=== PATIENT | male | born 1960 | race Two or more races ===

== ENCOUNTER 2025-03-19 16:21 | Emergency (ER) | payer SELFPAY ==
[2025-03-19 16:42] VITALS: BP 138/80; PULSE 104; RESP 18; TEMP 37.5; O2SAT 96
--- NOTE | 2025-03-19 16:55 | XR_ITS ---
Examination: Venous duplex lower extremity sonogram, bilateral. Date and time of exam: March 19, 2025, 1721 hours INDICATIONS: Bilateral leg swelling 4 days, recent diagnosis DVT, patient started on anticoagulation therapy Technique: Multiple sonographic images of the deep venous system have been obtained. B-mode/2-D grayscale imaging of vascular structures and Doppler spectral analysis (waveforms) and color performed Both legs are examined. Findings: Deep venous systems do not demonstrate abnormal echogenicity. All visualized deep veins exhibit compressibility. All visualized deep veins exhibit augmentation. Impression: Negative for deep vein thrombosis
--- NOTE | 2025-03-19 16:55 | XR_ITS ---
Examination: AP lateral chest 2 views TECHNIQUE: Upright AP lateral chest 2 views Date and time: March 19, 2025 1710 hours INDICATIONS: Chest pain beginning today with swollen hands and feet 4 days. FINDINGS: Mild prominence left ventricle Ectatic thoracic aorta. Moderate vascular congestion. No or vashti pulmonary edema Impression: No pneumonia or vashti pulmonary edema
--- NOTE | 2025-03-19 16:55 | XR_ITS ---
Examination: Duplex scan of the upper extremity, unilateral right Date and time of exam: March 19, 2025, 1742 hours INDICATIONS: Right arm swelling beginning 4 days ago, history diagnosis leg DVT, patient currently is anticoagulated Technique: Duplex scan of the extremity veins using B-mode/grayscale imaging and Doppler spectral analysis and color flow Attention is directed to internal echogenicity, compression and augmentation involving these veins, color flow assessment, spectral analysis Findings: Major deep venous structures in the extremity demonstrate normal course and caliber. There is no evidence of deep vein thrombosis. Normal color flow and spectral analysis Impression: Negative for DVT..
--- NOTE | 2025-03-19 16:55 | EKG_ITS ---
[facility] Test Date: 2025-03-19 Pat Name: JEROME PERDOMO Department: Room: - Gender: Male Document Advisor: : [id number] Requested By: Tj Fuller (TRUDY) Order Number: [id number] Reading MD: Tj Fuller (COPY LATHE OPERATOR) Measurements Intervals [place] Rate: 104 P: 15 TN: 159 QRS: 11 QRSD: 101 T: -5 QT: 358 QTc: 472 Interpretive Statements SINUS TACHYCARDIA MINIMAL ST DEPRESSION [0.025+ mV ST DEPRESSION] ABNORMAL RHYTHM ECG No previous ECG available for comparison /store/S0/[id number]/ecg/[id number].pdf
--- NOTE | 2025-03-19 16:56 | EDRME_ITS ---
Rapid Medical Screening Exam RME Arrival date/time: 03/19/25 16:21 64-year-old male presents to the Emergency Department today from plaint of bilateral pressure and swelling and lower extremity swelling patient reports he was recently diagnosed with blood clot while in the hospital and [place] patient was started on Eliquis Chief Complaint: Extremity Problem,Nontraumatic Vital signs: Vital Signs Temperature 99.5 F 03/19/25 16:42 Pulse Rate 104 H 03/19/25 16:42 Respiratory Rate 18 03/19/25 16:42 Blood Pressure 138/80 H 03/19/25 16:42 Pulse Oximetry (%) 96 03/19/25 16:42 Oxygen Delivery Method Room Air 03/19/25 16:42
[2025-03-19 17:19] LABS: Basophils # (Auto) 0.0 Thou/mm3 (0.0-0.2); Basophils % (Auto) 1 % (0-2.5); Eosinophils # (Auto) 0.3 Thou/mm3 (0.0-0.5); Eosinophils % (Auto) 5 % (0-10); Hematocrit 33.2 % (41.0-53.0); Hemoglobin 10.9 g/dL (13.5-16.0); Immature Granulocytes Auto 0.06 Thou/mm3 (0.00-0.00); Lymphocytes # (Auto) 1.1 Thou/mm3 (1.0-4.8); Lymphocytes % (Auto) 17 % (10-50); Mean Corpuscular HGB Conc 32.8 g/dl (31.0-37.0); Mean Corpuscular Hemoglobin 28.5 pg (25.0-35.0); Mean Corpuscular Volume 87 fL (80-100); Monocytes # (Auto) 1.0 Thou/mm3 (0.0-0.8); Monocytes % (Auto) 15 % (0-12); Neutrophils # (Auto) 4.0 Thou/mm3 (1.8-7.7); Neutrophils % (Auto) 61 % (37-80); Nucleated Red Blood Cell # 0.00 Thou/mm3 (0.00-0.00); Nucleated Red Blood Cell % 0 /100 WBC (0); Platelet Count 421 Thou/mm3 (140-440); RDW Standard Deviation 47.3 fL (35.1-43.9); Red Blood Count 3.82 Miln/mm3 (4.50-5.90); White Blood Count 6.5 Thou/mm3 (3.8-10.6)
[2025-03-19 17:40] LABS: B-Type Natriuretic Peptide 96 pg/mL (0-100)
[2025-03-19 17:41] LABS: Alanine Aminotransferase 9 U/L (10-49); Albumin, Serum 3.8 gm/dL (3.4-4.8); Albumin/Globulin Ratio 1.1 (1.2-2.2); Alkaline Phosphatase 56 U/L (46-116); Anion Gap 14 (7-16); Aspartate Amino Transferase 22 U/L (0-34); BUN/Creatinine Ratio 6 Ratio (12-20); Bilirubin,Total 0.5 mg/dL (0.3-1.2); Blood Urea Nitrogen 7 mg/dL (9-23); Calcium 9.8 mg/dL (8.3-10.6); Calcium (Corrected) 10.0 mg/dL (8.5-10.1); Carbon Dioxide 21.3 mMol/L (20.0-31.0); Chloride 99 mMol/L (98-107); Creatinine (Component) 1.1 mg/dL (0.6-1.3); Globulin 3.6 gm/dL (2.3-3.5); Glucose 114 mg/dL (74-106); Magnesium 1.7 mg/dL (1.6-2.6); Osmolality,Calculated 267 (275-295); Potassium 3.3 mMol/L (3.4-5.1); Sodium 134 mMol/L (136-145); Total Protein 7.4 gm/dL (5.7-8.2); Troponin I < 0.020 ng/mL (0.0-0.045); eGFR > 60 See Note
[2025-03-19 19:04] LABS: INR 1.3 (0.9-1.3); Partial Thromboplastin Time 48.4 Seconds (22.0-36.0); Prothrombin Time 14.4 Seconds (9.0-12.2)
[2025-03-19 19:56] VITALS: BP 151/83; PULSE 87; RESP 22; TEMP 37.2; O2SAT 96
--- NOTE | 2025-03-19 20:03 | PC.NURSE ---
pt arrived to ed for bilateral leg swelling that started around 6 to 10 days. pt was at a hospital in [place] and dx with bilateral lower extremity clots and given eliqus. pt also has bilateral hand swelling that started acouple days go
--- NOTE | 2025-03-19 20:08 | EDNOTE_ITS ---
ED Extremity Problem RME/HPI General Chief complaint: Extremity Problem,Nontraumatic Stated complaint: Hands/feet swollen with pain X 4 days Arrival date/time: 03/19/25 16:21 RME / HPI RME / HPI Narrative: 03/19/25 16:21 64-year-old male presents to the Emergency Department today with the complaint of bilateral pressure and swelling and lower extremity swelling patient reports he was recently diagnosed with blood clot while in the hospital and [place] patient was started on Eliquis DR. PENN MAIN ED EVALUATION: 64 y/o male presents to ED c/o BL foot and RUE pain and swelling x 2 weeks. Patient was diagnosed with a blood clot in the BLE in [place] and was prescribed Eliquis approximately 4 days ago. Per son, patient has been walking less than normal. No other concerns or complaints expressed at this time. Related Data Previous Rx's ?Medication ?Instructions ?Recorded diclofenac sodium 1 % topical gel 2 g topical QID #100 grams 04/21/23 losartan 100 mg tablet 100 mg PO QDAY #30 tabs 04/06 01/26 cephalexin 500 mg capsule 1,000 mg (2 x 500 mg) PO BID 7 03/19/25 days #28 caps morphine 15 mg immediate release 7.5 mg (1/2 x 15 mg) PO Q6H PRN 03/19/25 tablet pain #20 tabs Allergies Allergy/AdvReac Type Severity Reaction Status Date / Time No Known Allergies Allergy Verified 03/19/25 16:28 Review of Systems Review of Systems Systems Reviewed: All systems reviewed, normal except as documented ED Exam Narrative Physical exam: Generally patient is alert in mild distress secondary to pain, extremities show some swelling to the dorsal portion of the right hand and pitting edema with some warmth and tenderness to the dorsal portion of bilateral feet and medial malleoli regions. No abscess. Equal and palpable dorsalis pedis pulses bilaterally. There is no asymmetric swelling to either lower extremity or upper extremity. Heart regular rate and rhythm, lungs clear to auscultation equal bilaterally, abdomen is distended nontympanic nontender. Course Course Course Narrative: CXR is ordered for determining the etiology of shortness of breath. Quality Measures Current suspected stage: sepsis Possible source: skin/soft tissue Blood cultures ordered: yes Antibiotic ordered: Yes Pertinent labs: 03/19/25 21:16 Lactic Acid 1.1 mMol/L (0.4-2.0) sepsis Orders Category Date Time Status EKG (ED ONLY) *Do not use* NOW Care 03/19/25 16:55 Completed Insert IV NOW Care 03/19/25 20:02 Active EKG (ED Only) Stat Exams 03/19/25 16:55 Draft US venous doppler LE BI Stat Exams 03/19/25 16:55 Completed US venous doppler UE RT Stat Exams 03/19/25 16:55 Completed XR chest 2V Stat Exams 03/19/25 16:55 Completed B-Type Natriuretic Peptide Stat Lab 03/19/25 17:06 Completed Blood Culture (Lab) Stat Lab 03/19/25 21:10 Received CBC Stat Lab 03/19/25 17:06 Completed Comprehensive Metabolic Panel Stat Lab 03/19/25 17:06 Completed Drug Screen,Urine Stat Lab 03/19/25 19:44 Completed Lactic Acid [Lactate (Lactic Acid)] Stat Lab 03/19/25 21:16 Completed Magnesium Stat Lab 03/19/25 17:06 Completed Partial Thromboplastin Time Stat Lab 03/19/25 17:06 Completed Prothrombin Time with INR Stat Lab 03/19/25 17:06 Completed Troponin I Stat Lab 03/19/25 17:06 Completed UA [Urinalysis] Stat Lab 03/19/25 20:49 Ordered Acetaminophen Tab [Tylenol Tab] Med 03/19/25 20:50 Discontinued 650 mg PO X1 ONE Morphine Inj Med 03/19/25 20:08 Discontinued 4 mg IVP X1 ONE cefTRIAXone/D5w 1gm IV premix [Rocephin/D5w 1gm IV Med 03/19/25 20:50 Discontinued premix] 1 gm in 50 ml IV X1 Vital Signs Vital signs: Vital Signs Temperature 99.5 F 03/19/25 16:42 Pulse Rate 104 H 03/19/25 16:42 Respiratory Rate 18 03/19/25 16:42 Blood Pressure 138/80 H 03/19/25 16:42 Pulse Oximetry (%) 96 03/19/25 16:42 Oxygen Delivery Method Room Air 03/19/25 16:42 Extremity Problem MDM Narrative MDM Narrative:: Scribe Attestation: I, Meagan Nunes, am scribing for and in the presence of Dr. Penn. Provider Notation: Although this document has been carefully reviewed, there may still be some phonetic and other typographical errors.? These errors are purely grammatical due to imperfections in the software program and should not be construed in any way to? compromise the substance of the patient's medical care during this visit. Doppler ultrasounds of the bilateral upper and lower extremities showed no evidence of deep venous thrombosis. Patient spiked a fever here in the emergency room of 102 degrees. Lactic acid level is 1.1. There is no leukocytosis. Patient received Rocephin 1 g IV. It would be strange to have bilateral cellulitis to bilateral feet however there is erythema warmth and tenderness without abscess. I will treat the cellulitis as an outpatient with cephalexin to be taken as prescribed. Here in the emergency room patient did receive morphine 4 mg IV and he will be discharged on morphine to be taken as prescribed. He does have primary care follow-up. He has a follow-up with his primary care physician and return to the emergency room as needed or if condition worsens. Patient was normal tensive here in the emergency room. Chest x-ray was normal. He could not give a urine sample and refused catheterization. I interpreted all labs. Critical care time spent on this patient excluding other billable procedures was 35 minutes. Patient data External records reviewed:: [facility] previous records (Reviewed prior ED records from 04/21/23. Patient was seen for HTN (hypertension).) Clinical information provided by:: patient and family (Son) Social determinants that could affect healthcare access:: none Patient has the following chronic illnesses:: None reported How is presenting disease/condition affected by chronic disease/condition?: no chronic disease Evaluation data The following diagnostics were reviewed and interpreted by me:: lab results, radiology exam(s) and EKG tracing(s) Lab and/or radiology exams considered but not ordered:: None Interpretation Summary: RADIOLOGY Chest X-Ray: FINDINGS: Mild prominence left ventricle Ectatic thoracic aorta. Moderate vascular congestion. No or vashti pulmonary edema Impression: No pneumonia or vashti pulmonary edema US Venous Doppler LE BI: Findings: Deep venous systems do not demonstrate abnormal echogenicity. All visualized deep veins exhibit compressibility. All visualized deep veins exhibit augmentation. Impression: Negative for deep vein thrombosis US Venous Doppler UE RT: Findings: Major deep venous structures in the extremity demonstrate normal course and caliber. There is no evidence of deep vein thrombosis. Normal color flow and spectral analysis Impression: Negative for DVT. Medications / Prescriptions Medications or Prescriptions considered but not ordered:: None Medication administrations:: Medication Administration History Discontinued Medications Acetaminophen (Acetaminophen 325 Mg Tablet) 650 mg PO X1 ONE Stop: 03/19/25 20:51 Last Admin: 03/19/25 21:19 Dose: 650 mg Documented By: ARIK Ceftriaxone Sodium/Dextrose (Rocephin/D5w 1gm Iv Premix) 1 gm in 50 mls @ 100 mls/hr IV X1 ONE Stop: 03/19/25 21:19 Last Infusion: 03/19/25 21:56 Dose: Infused Documented By: Admin: 03/19/25 21:19 Dose: 100 mls/hr Documented By: ARIK Morphine Sulfate (Morphine Sulf Inj 10 Mg/Ml Vial) 4 mg IVP X1 ONE Stop: 03/19/25 20:09 Last Admin: 03/19/25 20:30 Dose: 4 mg Documented By: ARIK See above. Consultations Consultation(s) initiated? (list below): No Diagnosis Extremity Problem Differential Diagnosis: gout, cellulitis, superficial thrombophlebitis, deep venous thrombosis of upper extremity, lower extremity edema and deep vein thrombosis of lower extremity Most likely diagnosis given after review of the tests above:: None Admission Indicated Admission indicated?: not indicated Explain why admission is indicated or not indicated:: Patient does not meet admission criteria. Admission Request Was there a request for admission?: No Disposition Plan Disposition Plan: Discharge Discharge Attestation Discharge Attestation: The patient and all family members were given an opportunity to ask questions and understood the discharge instructions. Discharge instructions specifically effects, indications for sooner follow up or return to the emergency department, and the expected course of current diagnosis. Patient condition: Stable Critical Care Time Critical Care Time Total Critical Care Time (min.): 35 Attestation: Excluding other billable procedures Discharge Plan Plan Patient Disposition: HOME (Self Care) Prescriptions/Referrals Prescriptions/Med Rec: New cephalexin 500 mg capsule 1,000 mg PO BID 7 Days Qty: 28 0RF morphine 15 mg tablet 7.5 mg PO Q6H MDD 4 tabs PRN (Reason: pain) Qty: 20 0RF No Action diclofenac sodium 1 % gel 2 g topical QID Qty: 100 0RF Rx Instructions: apply to single elbow, wrist or hand; for hand includes palm/fingers/back of hand losartan 100 mg tablet 100 mg PO QDAY Qty: 30 0RF Referrals: Ravi Kenyon MD [Primary Care Provider] - In 1 week Problem List Clinical Impression: Cellulitis Patient/Caregiver Discharge Instructions Education Materials: ED Cellulitis Additional Instructions: Take the antibiotic as prescribed. Morphine for pain. Elevate legs is much as possible. Follow-up with your doctor. Return to ER as needed or if condition worsens. Print Language: [place] Stand Alone Forms: Sari Award Info., Patient Portal Info Letter
[2025-03-19 20:18] LABS: Amphetamine/Methamp Scrn,U Negative (Negative); Barbiturate Screen,Urine Negative (Negative); Benzodiazepines Screen,Urine Negative (Negative); Benzoylecgonine Screen, Ur Negative (Negative); Fentanyl Screen,Urine Negative (Negative); Opiate Screen,Urine Negative (Negative); THC Screen,Urine Negative (Negative)
[2025-03-19] MEDS: MORPHINE SULF INJ 10 MG/ML VIAL 4 MG IVP (20:30)
[2025-03-19 20:36] VITALS: BP 151/83; PULSE 95; RESP 22; TEMP 38.9; O2SAT 93
[2025-03-19 21:19] VITALS: TEMP 38.9
[2025-03-19] MEDS: cefTRIAXone/D5w 1gm IV premix 1 GM/50 ML BAG IV (21:19)
[2025-03-19] MEDS: ACETAMINOPHEN 325 MG TABLET 650 MG PO (21:19)
[2025-03-19 21:23] LABS: Lactate (Lactic Acid) 1.1 mMol/L (0.4-2.0)
[2025-03-19 21:56] VITALS: BP 151/83; PULSE 84; RESP 22; TEMP 37.1; O2SAT 94
== END 2025-03-19 22:26 | disposition home or self-care (01) ==
PROVIDERS: Nurse Practitioner Primary Care; Emergency Provider Emergency Medicine; PCP Family Medicine
DX: L03.116 Cellulitis of left lower limb (principal); L03.115 Cellulitis of right lower limb; R00.0 Tachycardia, unspecified; R07.9 Chest pain, unspecified
CPT/HCPCS: 36415; 71046; 80053; 80307; 81001; 83605; 83735; 83880; 84484; 85025; 85610; 85730; 87040; 93005; 93970; 93971; 96365; 96375; 99283; J0696; J2270; A9270

== ENCOUNTER → 2025-05-19 | Outpatient (BNVA) | payer MEDICARE, SELFPAY | END | disposition home or self-care (01) | PROVIDERS: PCP Nurse Practitioner Family; Referring Provider Nurse Practitioner Family; Visit Provider Nurse Practitioner Family | DX: Z00.00 Encounter for general adult medical examination without abnormal findings (principal); I10 Essential (primary) hypertension; K70.30 Alcoholic cirrhosis of liver without ascites; Z13.1 Encounter for screening for diabetes mellitus; Z11.3 Encounter for screening for infections with a predominantly sexual mode of transmission; M10.9 Gout, unspecified; I82.409 Acute embolism and thrombosis of unspecified deep veins of unspecified lower extremity; F10.10 Alcohol abuse, uncomplicated; F32.A Depression, unspecified | CPT/HCPCS: 99215; Q0162 ==

== ENCOUNTER → 2025-05-27 | Outpatient (BNVA) | payer MEDICARE, SELFPAY | END | disposition home or self-care (01) | PROVIDERS: PCP Nurse Practitioner Family; Referring Provider Nurse Practitioner Family; Visit Provider Nurse Practitioner Family | DX: Z71.2 Person consulting for explanation of examination or test findings (principal); D50.9 Iron deficiency anemia, unspecified; I10 Essential (primary) hypertension; M1A.9XX0 Chronic gout, unspecified, without tophus (tophi); K70.30 Alcoholic cirrhosis of liver without ascites; E03.9 Hypothyroidism, unspecified; R94.5 Abnormal results of liver function studies; Z23 Encounter for immunization; L50.9 Urticaria, unspecified; I82.409 Acute embolism and thrombosis of unspecified deep veins of unspecified lower extremity | CPT/HCPCS: 90471; 90686; 99215 ==

== ENCOUNTER → 2025-06-05 | Outpatient (BNVA) | payer MEDICARE, SELFPAY | END | disposition home or self-care (01) | PROVIDERS: PCP Nurse Practitioner Family; Referring Provider Nurse Practitioner Family; Visit Provider Nurse Practitioner Family | DX: D50.9 Iron deficiency anemia, unspecified (principal); F10.10 Alcohol abuse, uncomplicated; K70.30 Alcoholic cirrhosis of liver without ascites; R94.5 Abnormal results of liver function studies ==

== ENCOUNTER → 2025-06-11 | Outpatient (BNVA) | payer MEDICARE, MEDICAID, SELFPAY | END | disposition home or self-care (01) | PROVIDERS: PCP Nurse Practitioner Family; Referring Provider Nurse Practitioner Family; Visit Provider Nurse Practitioner Family | DX: R53.83 Other fatigue (principal); I10 Essential (primary) hypertension; Z71.2 Person consulting for explanation of examination or test findings; I82.409 Acute embolism and thrombosis of unspecified deep veins of unspecified lower extremity; M1A.9XX0 Chronic gout, unspecified, without tophus (tophi); R94.5 Abnormal results of liver function studies; K70.30 Alcoholic cirrhosis of liver without ascites; L50.9 Urticaria, unspecified | CPT/HCPCS: 99214 ==

== ENCOUNTER → 2025-07-13 | Outpatient (BNVA) | payer MEDICARE, MEDICAID, SELFPAY | END | disposition home or self-care (01) | PROVIDERS: PCP Nurse Practitioner Primary Care; Referring Provider Nurse Practitioner Primary Care; Visit Provider Nurse Practitioner Primary Care | DX: Z00.00 Encounter for general adult medical examination without abnormal findings (principal); M25.561 Pain in right knee; M25.562 Pain in left knee; R54 Age-related physical debility; E78.2 Mixed hyperlipidemia; K02.9 Dental caries, unspecified; N18.31 Chronic kidney disease, stage 3a | CPT/HCPCS: 93005; 99173 ==